=== PATIENT | male | born 1985 | race Caucasian/White ===

== ENCOUNTER 2017-10-18 09:22 | Emergency (ER) | payer OTHER ==
[~2017-10-18] VITALS: Ht 185.4 cm; Wt 118.0 kg
[~2017-10-18 09:22] MED LIST: Z.0.NO CURRENT MEDS
[2017-10-18 09:27] VITALS: BP 146/82; PULSE 77; RESP 16; TEMP 97.9; O2SAT 97
--- NOTE | 2017-10-18 09:27 | PD ---
HPI Chief Complaint: Syncope Time Seen by Provider: 09:25 Travel History International Travel<30 days: No Contact w/Intl Traveler<30days: No Traveled to known affect area: No History of Present Illness HPI Patient is a protective, while he was sitting up at a table at the station he complained of feeling generalized weakness. According to another finishing inspector that was at the table with him, he noticed the patient eyes rolled back and he got pale and sweaty, and was mumbling saying noncoherent things. After approximately a period of 8 minutes or so patient fully resolved at that point [facility] had already arrived. According to the patient he was started on lisinopril 5 mg taken 2 tablets once a day and he took a total of 3 different doses starting with once 2 days ago, last night and this morning at 730. Per witnesses no seizure tonic-clonic activity. Per patient he denied having any prodrome such as headache, visual changes, lateralizing weakness, palpitations, nausea vomiting, chest pain, back pain, back pain, abdominal pain. Patient also denies any alleviating or aggravating factors. pcp is dr cornell No nondrug allergies Past medical history significant for hypertension [facility] Social History Alcohol Use: Yes (SOCIALLY) Tobacco Use: No Substance Use: No Allergies-Medications (Allergen,Severity, Reaction): Coded Allergies: No Known Allergies (Verified Adverse Reaction, Unknown, 10/18/17) Reported Meds & Prescriptions Reported Meds & Active Scripts Active Reported Lisinopril 5 Mg Tab 5 Mg PO BID Review of Systems General / Constitutional: No: Fever Eyes: No: Visual changes HENT: No: Headaches Cardiovascular: No: Chest Pain or Discomfort Respiratory: No: Shortness of Breath Gastrointestinal: No: Abdominal Pain Genitourinary: No: Dysuria Musculoskeletal: No: Pain Skin: No Rash Neurologic: Positive: Syncope Psychiatric: No: Depression Endocrine: No: Polydipsia Hematologic/Lymphatic: No: Easy Bruising Physical Exam Narrative GENERAL: SKIN: Warm and dry. HEAD: Atraumatic. Normocephalic. EYES: Pupils equal and round. No scleral icterus. No injection or drainage. ENT: No nasal bleeding or discharge. Mucous membranes pink and moist. NECK: Trachea midline. No JVD. CARDIOVASCULAR: Regular rate and rhythm. RESPIRATORY: No accessory muscle use. Clear to auscultation. Breath sounds equal bilaterally. GASTROINTESTINAL: Abdomen soft, non-tender, nondistended. MUSCULOSKELETAL: Extremities without clubbing, cyanosis, or edema. No obvious deformities. NEUROLOGICAL: Awake and alert. No obvious cranial nerve deficits. Motor grossly within normal limits. Five out of 5 muscle strength in the arms and legs. Normal speech. PSYCHIATRIC: Appropriate mood and affect; insight and judgment normal. Data Data Last Documented VS Vital Signs Date Time Temp Pulse Resp B/P (MAP) Pulse Ox O2 Delivery O2 Flow Rate FiO2 10/18/17 10:18 74 20 142/69 (93) 80 16 141/73 (95) 82 16 138/79 (98) 10/18/17 09:51 98 Room Air 10/18/17 09:27 97.9 Orders Orders Electrocardiogram (10/18/17 09:44) Complete Blood Count With Diff (10/18/17 09:44) Comprehensive Metabolic Panel (10/18/17 09:44) Prothrombin Time / Inr (Pt) (10/18/17:44) Act Partial Throm Time (Ptt) (10/18/17:44) Troponin I (10/18/17 09:44) Thyroid Stimulating Hormone (10/18/17 09:44) Urinalysis - C+S If Indicated (10/18/17 09:44) Chest, Single Ap (10/18/17 09:44) Ct Brain W/O Iv Contrast(Rout) (10/18/17 09:44) Blood Glucose (10/18/17 09:44) Ecg Monitoring (10/18/17 09:44) Iv Access Insert/Monitor (10/18/17:44) Oximetry (10/18/17 09:44) Sodium Chloride 0.9% Flush (Ns Flush) (10/18/17 09:45) Drug Screen, Random Urine (10/18/17 09:44) Alcohol (Ethanol) (10/18/17 09:44) Tylenol (Acetaminophen) (10/18/17 09:44) Salicylates (Aspirin) (10/18/17 09:44) Orthostatic Vital Signs (10/18/17 09:45) Sodium Chlor 0.9% 1000 Ml Inj (Ns 1000 M (10/18/17 11:30) Labs Laboratory Tests Test 10/18/17 10:05 10/18/17 11:00 White Blood Count 7.6 TH/MM3 Red Blood Count 5.13 MIL/MM3 Hemoglobin 15.4 GM/DL Hematocrit 43.8 % Mean Corpuscular Volume 85.4 FL Mean Corpuscular Hemoglobin 30.0 PG Mean Corpuscular Hemoglobin Concent 35.2 % Red Cell Distribution Width 12.8 % Platelet Count 253 TH/MM3 Mean Platelet Volume 7.8 FL Neutrophils (%) (Auto) 65.1 % Lymphocytes (%) (Auto) 24.2 % Monocytes (%) (Auto) 6.1 % Eosinophils (%) (Auto) 2.5 % Basophils (%) (Auto) 2.1 % Neutrophils # (Auto) 4.9 TH/MM3 Lymphocytes # (Auto) 1.8 TH/MM3 Monocytes # (Auto) 0.5 TH/MM3 Eosinophils # (Auto) 0.2 TH/MM3 Basophils # (Auto) 0.2 TH/MM3 CBC Comment DIFF FINAL Differential Comment Prothrombin Time 10.9 SEC Prothromb Time International Ratio 1.1 RATIO Activated Partial Thromboplast Time 19.7 SEC Blood Urea Nitrogen 16 MG/DL Creatinine 1.00 MG/DL Random Glucose 105 MG/DL Total Protein 6.7 GM/DL Albumin 3.5 GM/DL Calcium Level 8.6 MG/DL Alkaline Phosphatase 58 U/L Aspartate Amino Transf (AST/SGOT) 52 U/L Alanine Aminotransferase (ALT/SGPT) 159 U/L Total Bilirubin 0.5 MG/DL Sodium Level 141 MEQ/L Potassium Level 3.8 MEQ/L Chloride Level 107 MEQ/L Carbon Dioxide Level 29.5 MEQ/L Anion Gap 5 MEQ/L Estimat Glomerular Filtration Rate 86 ML/MIN Troponin I LESS THAN 0.02 NG/ML Thyroid Stimulating Hormone 3rd Gen 3.190 uIU/ML Ethyl Alcohol Level LESS THAN 3 MG/DL Urine Collection Type CATH Urine Color YELLOW Urine Turbidity CLEAR Urine pH 7.0 Urine Specific Eek 1.020 Urine Protein NEG mg/dL Urine Glucose (UA) NEG mg/dL Urine Ketones NEG mg/dL Urine Occult Blood NEG Urine Nitrite NEG Urine Bilirubin NEG Urine Urobilinogen 0.2 MG/DL Urine Leukocyte Esterase NEG Urine RBC 0-3 /hpf Urine Squamous Epithelial Cells 0-5 /hpf Microscopic Urinalysis Comment CULT NOT INDICATED Urine Collection Time 11:00 Urine Barbiturates Screen NEG Urine Amphetamines Screen NEG Urine Benzodiazepines Screen NEG Urine Cocaine Screen NEG Urine Cannabinoids Screen NEG [facility] Medical Decision Making Medical Screen Exam Complete: Yes Emergency Medical Condition: Yes Medical Record Reviewed: Yes Interpretation(s) Pulse ox showed an excellent pleth wave, on room air, reading 95-100 which is within normal limits and shows no evidence of any hypoxemia EKG shows a normal sinus rhythm, 76 bpm, normal intervals, no evidence of any ST elevation ID at this present time however there was nonspecific T-wave inversion on lead #3 only. Differential Diagnosis Orthostatic hypotension versus CVA versus aneurysm versus STEMI versus non- STEMI versus dehydration Narrative Course Negative orthostatic vitals CBC no evidence of leukocytosis, no left shift, no anemia, and normal platelet count. Coagulation profile is within normal limits Electrolytes are all within normal limits, normal kidney functions, negative first set of cardiac enzymes, normal TSH screening test, slightly elevated though nondiagnostic AST of 52 and ALT of 159 with normal alk phos and normal bilirubin Negative alcohol, tox screen negative for barbiturates and amphetamines benzodiazepines cocaine or marijuana. UA shows no evidence of a UTI Diagnosis Primary Impression: Syncope possibly secondary to lisinopril use Patient Instructions: Adverse Drug Reaction (ED), General Instructions, Syncope (ED) Additional Instructions: Your highly recommended to follow-up with your primary care, , to get further screening tests performed. The screening test should include, echocardiogram of your heart, Holter monitor, possibly an MRI of your brain and MRA of your carotids as well as follow-up with a neurologist to get fully cleared. Although it is possible that your symptoms occurred secondary to the lisinopril, your blood pressure remain somewhat elevated and normal, and you did not have any evidence of orthostatic hypotension which would have been expected if this was caused by lisinopril. Disposition: 01 DISCHARGE HOME Condition: Stable Harris Jones MD October 18, 2017 09:27
[2017-10-18] MEDS ORDERED: SODIUM CHLORIDE 0.9% FLUSH 10 ML FLUSH IV FLUSH PRN (09:45)
[2017-10-18 09:51] VITALS: PULSE 73; RESP 16; O2SAT 98
[2017-10-18] MEDS ORDERED: LISI-519 PO (09:53)
[2017-10-18 10:18] VITALS: BP_SYST 138; BP_SYST 141; BP_SYST 142; BP_DIAS 69; BP_DIAS 73; BP_DIAS 79; RESP 16; RESP 20
[2017-10-18 10:18] LABS: AUTOMATED NEUTROPHIL # 4.9 TH/MM3 (1.8-7.7); BASOPHIL # 0.2 TH/MM3 (0-0.2); BASOPHIL % 2.1 % (0.0-2.0); EOSINOPHIL # 0.2 TH/MM3 (0-0.4); EOSINOPHIL % 2.5 % (0.0-4.0); HEMATOCRIT 43.8 % (39.0-51.0); HEMOGLOBIN 15.4 GM/DL (13.0-17.0); LYMPH % 24.2 % (9.0-44.0); LYMPHOCYTE # 1.8 TH/MM3 (1.0-4.8); MEAN CELL VOLUME 85.4 FL (80.0-100.0); MEAN CORPUSCULAR HGB CONC 35.2 % (32.0-36.0); MEAN PLATELET VOLUME 7.8 FL (7.0-11.0); MONO % 6.1 % (0.0-8.0); MONOCYTE # 0.5 TH/MM3 (0-0.9); NEUT % 65.1 % (16.0-70.0); PLATELET COUNT 253 TH/MM3 (150-450); RED BLOOD COUNT 5.13 MIL/MM3 (4.50-5.90); RED CELL DISTRIBUTION WIDTH 12.8 % (11.6-17.2); WHITE BLOOD COUNT 7.6 TH/MM3 (4.0-11.0)
[2017-10-18 10:26] LABS: CHLORIDE 107 MEQ/L (98-107); SODIUM (NA) 141 MEQ/L (136-145)
[2017-10-18 10:29] LABS: CALCIUM 8.6 MG/DL (8.5-10.1)
[2017-10-18 10:30] LABS: ALBUMIN 3.5 GM/DL (3.4-5.0); BICARBONATE 29.5 MEQ/L (21.0-32.0); BLOOD UREA NITROGEN 16 MG/DL (7-18); GLUCOSE,RANDOM 105 MG/DL (74-106)
--- NOTE | 2017-10-18 10:33 | RADRPT ---
EXAM DATE/TIME: 10/18/2017 10:20 [facility] COMPARISON: No previous studies available for comparison. INDICATIONS : Syncope, patient just started a new medication for blood pressure. MEDICAL HISTORY : Hypertension. SURGICAL HISTORY : None. ENCOUNTER: Initial ACUITY: 1 day PAIN SCORE: 0/10 LOCATION: Bilateral chest FINDINGS: Portable AP view of the chest demonstrates a normal-sized cardiac silhouette. No effusion, consolidat ion, or pneumothorax is visualized. The bones and soft tissues demonstrate no acute abnormality. Lung s are underinflated and EKG lines overlie the patient. CONCLUSION: No acute cardiopulmonary abnormality is identified. Albert Tan MD on October 18, 2017 at 10:31 Board Certified Radiologist. This report was verified electronically.
[2017-10-18 10:34] LABS: ALT (GPT) 159 U/L (12-78); GLOMERULAR FILTRATION RATE 86 ML/MIN (>89)
[2017-10-18 10:35] LABS: AST (GOT) 52 U/L (15-37); TOTAL BILIRUBIN ADULT 0.5 MG/DL (0.2-1.0)
[2017-10-18 10:36] LABS: ALKALINE PHOSPHATASE 58 U/L (45-117); INTERNATIONAL NORMALIZED RATIO 1.1 RATIO; PROTHROMBIN TIME - PATIENT 10.9 SEC (9.8-11.6); TOTAL PROTEIN 6.7 GM/DL (6.4-8.2)
[2017-10-18 10:39] LABS: TROPONIN I LESS THAN 0.02 NG/ML (0.02-0.05)
--- NOTE | 2017-10-18 10:51 | RADRPT ---
EXAM DATE/TIME: 10/18/2017 10:27 [facility] COMPARISON: No previous studies available for comparison. INDICATIONS : Syncopal episode. RADIATION DOSE: 62.43 CTDIvol (mGy) MEDICAL HISTORY : Hypertension. SURGICAL HISTORY : None. ENCOUNTER: Initial ACUITY: 1 day PAIN SCALE: 0/10 LOCATION: cranial TECHNIQUE: Multiple contiguous axial images were obtained of the head. Using automated exposure control and adj ustment of the mA and/or kV according to patient size, radiation dose was kept as low as reasonably a chievable to obtain optimal diagnostic quality images. DICOM format image data is available electro nically for review and comparison. FINDINGS: CEREBRUM: The ventricles are normal. No evidence of midline shift, mass lesion, hemorrhage or acute infarction . No extra-axial fluid collections are seen. POSTERIOR FOSSA: The cerebellum and brainstem are intact. The 4th ventricle is midline. The cerebellopontine angle i s unremarkable. EXTRACRANIAL: Visualized sinuses are clear. SKULL: The calvaria is intact. No evidence of skull fracture. CONCLUSION: Negative noncontrast head CT. Albert Tan MD on October 18, 2017 at 10:47 Board Certified Radiologist. This report was verified electronically.
[2017-10-18 11:10] VITALS: BP 127/72; PULSE 82; RESP 16; O2SAT 97
[2017-10-18 11:14] LABS: BILIRUBIN, URINE NEG (NEG); BLOOD, URINE NEG (NEG); GLUCOSE,URINE NEG (NEG); KETONE, URINE NEG (NEG); NITRITE,URINE NEG (NEG); URINE COLOR YELLOW (YELLW/STRAW); URINE LEUKOCYTE ESTERASE NEG (NEG)
[2017-10-18 11:20] LABS: RBC, URINE 0-3 /hpf (0-3); SQUAMOUS EPITHELIAL CELL URINE 0-5 /hpf (0-5)
[2017-10-18] MEDS ORDERED: SODIUM CHLOR 0.9% 1000 ML INJ 1,000 ML IV ONE (11:30)
[2017-10-18 12:36] LABS: ACETAMINOPHEN LESS THAN 2.0 MCG/ML (10.0-30.0)
[2017-10-18 13:37] VITALS: BP 130/65
--- NOTE | 2017-10-18 14:16 | EKG ---
Date Performed: 10/18/2017 Time Performed: 09:56:08 PTAGE: 32 years EKG: Sinus rhythm NORMAL ECG Since the PREVIOUS TRACING , no significant change noted PREVIOUS TRACIN05/15/2010 23.49 DOCTOR: Samantha Felipe Interpretating Date/Time 10/18/2017 14:14:14
== END 2017-10-18 14:25 | disposition home or self-care (01) ==
LOC: PHED 09:22
DX: R55 Syncope and collapse (principal); I10 Essential (primary) hypertension; Z79.899 Other long term (current) drug therapy
CPT/HCPCS: 70450; 71045; 80053; 80307; 81001; 84443; 84484; 85025; 85610; 85730; 93005; 96360; 99285; J7030